=== PATIENT | female | born 1960 | race Caucasian/White ===

== ENCOUNTER → 2020-08-12 | Outpatient (CLI) | payer OTHER ==
[~2020-08-12] MED LIST: ASPIRIN CHEWABL81 MG PO
== END ==
LOC: HEART 5 11:08
DX: R00.2 Palpitations (principal)

== ENCOUNTER → 2020-08-28 | Outpatient (CLI) | payer OTHER | LOC: KOH-I 12:02 | DX: I10 Essential (primary) hypertension (principal); R00.2 Palpitations | CPT/HCPCS: 71046 ==

== ENCOUNTER → 2020-12-30 | Outpatient (CLI) | payer OTHER | LOC: ECHO 07:42 → HEART 5 08:35 | DX: R00.2 Palpitations (principal); I42.9 Cardiomyopathy, unspecified; I08.1 Rheumatic disorders of both mitral and tricuspid valves | CPT/HCPCS: ECHO; 93306 ==

== ENCOUNTER → 2021-01-08 | Outpatient (CLI) | payer OTHER | LOC: MAMO 08:59 | DX: Z12.31 Encounter for screening mammogram for malignant neoplasm of breast (principal) | CPT/HCPCS: 77063; 77067 ==

== ENCOUNTER → 2021-03-08 | Outpatient (CLI) | payer OTHER | LOC: HEART 5 07:46 | DX: R07.9 Chest pain, unspecified (principal); I47.2 Ventricular tachycardia | CPT/HCPCS: 78452; A9502 ==